=== PATIENT | male | born 1985 | race Two or more races ===

== ENCOUNTER 2016-09-27 19:35 | Emergency (ER) | payer SELFPAY ==
[~2016-09-27] VITALS: Ht 167.6 cm; Wt 77.1 kg
[2016-09-27 20:44] LABS: BASOPHILS # (AUTO) 0.1 /CMM (0.0-0.2); DIFF TOTAL % 100 %; EOSINOPHILS % (AUTO) 0.1 % (0.0-6.0); HEMATOCRIT 34 % (39-51); HEMOGLOBIN 10.7 g/dL (13.5-17.5); LYMPHOCYTES # (AUTO) 1.2 /CMM (0.8-4.8); LYMPHOCYTES % (AUTO) 24.5 % (20.0-44.0); MEAN CORPUSCULAR HEMOGLOBIN 27 PG (26.0-33.0); MEAN CORPUSCULAR HGB CONC 31 g/dl (31.0-36.0); MEAN CORPUSCULAR VOLUME 85 fL (80-96); MONOCYTES # (AUTO) 0.7 /CMM (0.1-1.30); MONOCYTES % (AUTO) 13.8 % (2.0-12.0); NEUTROPHILS # (AUTO) 3.1 /CMM (1.8-8.9); NEUTROPHILS % (AUTO) 60.6 % (43.0-81.0); PLATELET COUNT (AUTO) 181 /CMM (150-450); RED BLOOD CELL COUNT(AUTO) 3.98 MIL/uL (4.5-6.0); WHITE BLOOD COUNT (AUTO) 5.1 K/uL (4.3-11.0)
[2016-09-27] MEDS ORDERED: IV NS 0.9% 1,000 ML ONE ×2 (20:57→23:51)
[2016-09-27] MEDS ORDERED: IV SET PRIMARY PUMP SET 1 EA INFUS.SET MC ONE (20:57)
[2016-09-27] MEDS ORDERED: Thiamine 100 MG/ML VIAL ONE (20:58)
[2016-09-27] MEDS ORDERED: IV D5W 50 ML IV ONE (20:58)
[2016-09-27 20:59] LABS: ALBUMIN 3.6 g/dL (3.4-5.0); BILIRUBIN,DIRECT 0.1 mg/dL (0.0-0.2); BILIRUBIN,TOTAL 0.2 mg/dL (0.2-1.0); CREATININE 0.6 mg/dL (0.6-1.3); INDIRECT BILIRUBIN 0.1 mg/dL (0.0-1.1); POTASSIUM 3.7 mmol/L (3.5-5.1); TOTAL PROTEIN, SERUM 8.5 g/dL (6.4-8.2)
[2016-09-27] MEDS ORDERED: SECONDARY IV SET 1 EA INFUS.SET MC ONE (20:59)
[2016-09-27] MEDS ORDERED: IV NS 0.9% 1,000 ML BAG IV ONE (21:00)
[2016-09-27] MEDS ORDERED: Thiamine 100 MG in IV D5W 50 ML IV SCH (21:00)
[2016-09-27] MEDS ORDERED: ONDANSETRON HCL/PF 4 MG/2 ML VIAL IVP ONE (21:00)
[2016-09-27 21:02] LABS: SALICYLATE 1.2 mg/dL (2.8-20.0)
[2016-09-27] MEDS ORDERED: ONDANSETRON HCL/PF 4 MG/2 ML VIAL ONE (21:02)
[2016-09-28] MEDS ORDERED: IV NS 0.9% 1,000 ML BAG IV ONE (00:30)
[2016-09-28 03:26] LABS: ADD UA MICROSCOPIC NO; KETONES,URINE NEGATIVE (NEGATIVE); LEUKOCYTE ESTERASE ,URINE NEGATIVE (NEGATIVE)
[2016-09-28 04:11] LABS: CANNABINOID, URINE NEGATIVE (NEGATIVE); PHENCYCLIDINE SCREEN,URINE NEGATIVE (NEGATIVE)
[2016-09-28 05:52] VITALS: BP 114/76
== END 2016-09-28 05:56 | disposition home or self-care (01) ==
LOC: ER 19:37 → EDBD 19:37 → ER 09-28 05:56
DX: R41.82 Altered mental status, unspecified (principal); F10.129 Alcohol abuse with intoxication, unspecified
CPT/HCPCS: 36415; 51702; 70450; 74176; 76705; 76870; 80048; 80076; 80305; 80329; 81001; 83690; 85025; 96361; 96365; 96375; 99285; A4606; G0480 ×2; J2405; J3411; J7030 ×2; J7060; Z7610; 81000-TC; G6039-TC